=== PATIENT | female | born 1980 | race Hispanic/Latino ===

== ENCOUNTER 2019-01-16 15:24 | Emergency (ER) | payer SELFPAY ==
[2019-01-16] MEDS ORDERED: ATIVAN ONE ×4 (15:28→15:38)
[2019-01-16] MEDS ORDERED: ATIVAN IM ONE (15:30)
[2019-01-16] MEDS ORDERED: ATIVAN IV ONE ×3 (15:33→15:37)
[2019-01-16] MEDS ORDERED: KEPPRA 1,000 MG/NS 0.75% 100ML 1,000 MG/100 ML BAG IV ONE ×2 (15:36→18:26)
[2019-01-16] MEDS ORDERED: NACL 0.9% 1000 ML 1,000 ML ONE (15:38)
[2019-01-16] MEDS ORDERED: VASELINE LIP THERAPY TP PRN (15:49)
[2019-01-16] MEDS ORDERED: ARTIFICIAL TEARS OPHTH OINT OU PRN (15:49)
[2019-01-16] MEDS ORDERED: NACL 0.9% 1000 ML 1,000 ML IV ONE (15:50)
[2019-01-16] MEDS ORDERED: DIPRIVAN 10 MG/ML 1,000 MG/100 ML BOTTLE IV ONE (15:52)
[2019-01-16] MEDS ORDERED: LEVOPHED DRIP 4 MG/NS 250 ML 4 MG/250 ML BAG IV ONE (15:59)
[2019-01-16] MEDS ORDERED: DILANTIN IV ONE (16:00)
[2019-01-16] MEDS ORDERED: DIPRIVAN 10 MG/ML 1,000 MG/100 ML BOTTLE IV SCH (16:00)
[2019-01-16] MEDS ORDERED: NACL 0.9% IV ONE (16:00)
--- NOTE | 2019-01-16 16:20 | Emergency Department Report ---
HPI - General Chief Complaint: Neuro Symptoms/Deficit Time Seen by Provider: 01/16/19 15:39 - HPI HPI: 38-year-old female presents to the emergency department via EMS from home with a complaint of seizures. There was one witnessed seizure prior to EMS arrival, 3 seizures witnessed by EMS and thus far there has been about 12 seizures in the emergency department. 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 She has a history of chronic back pains, lupus, lupus nephritis, asthma, hypothyroidism, COPD, hypertension, previous DVT, sleep apnea. There are some records that were provided from one of the patient's hospital stays in [place] that shows her past medical history, medications. The patient is currently unresponsive and therefore a poor historian. ED Review of Systems ROS: Stated complaint: SEIZURE Other details as noted in HPI Comment: Unobtainable due to pts medical conditions Physical Exam - Physical Exam Vital Signs: Vital Signs 01/16/19 01/16/19 01/16/19 15:46 16:06 16:15 Pulse Rate 111 H 77 78 Respiratory 15 16 Rate Blood Pressure 53/29 Blood Pressure 114/69 53/29 [Left] O2 Sat by Pulse 98 100 98 Oximetry Physical Exam: GENERAL: Patient is ill-appearing. HENT: Normocephalic. Atraumatic. Patient has moist mucous membranes. EYES: Pupils equal reactive to light bilaterally. NECK: Supple. Trachea is midline. CHEST/LUNGS: Patient is having bradypnea and snoring respirations. HEART/CARDIOVASCULAR: Regular. There is mild tachycardia. There is no murmur. ABDOMEN: Abdomen is soft, nontender. Patient has normal bowel sounds. There is no abdominal distention. SKIN: Skin is warm and dry. NEURO: The patient is unresponsive. She is having progressively increasing tonoclonic seizures with a brief postictal period. MUSCULOSKELETAL: There is no obvious deformity. Radial pulse +2 over 4 bilaterally. ED Course Vital Signs 01/16/19 01/16/19 01/16/19 15:46 16:06 16:15 Pulse Rate 111 H 77 78 Respiratory 15 16 Rate Blood Pressure 53/29 Blood Pressure 114/69 53/29 [Left] O2 Sat by Pulse 98 100 98 Oximetry - Consultations Consultation #1: 01/16/19 19:32 I spoke with the neurologist valuation manager at [facility], Dr. Becerra, who has accepted the patient for transfer to [facility]. Dr. Becerra has asked for the patient to receive another gram of Keppra and for the diazepam drip to be placed at 10 mg per hour. - ABG Interpretation Ph: [phone] PCO2: 56 PO2: 87 Bicarbonate: 21 Interpretation: respiratory acidosis - Intubation Time Out Performed: Yes Sedative: Etomidate Mg Given: 20 Paralytic: Rocuronium Mg Given: 100 Laryngoscope: other (Glydescope) Size: 4 ET Tube Size: 7.5 Tube Secured Depth (cm): 23 Tube Secured Location: lips Tube Placement Confirmation: visualized tube passing t, equal breath sounds bilat, confirmation by capnometr Patient Tolerated Procedure: well Intubation Complications: none ED Medical Decision Making - Lab Data Result diagrams: 01/16/19 16:15 01/16/19 16:15 - EKG Data -: EKG Interpreted by Me EKG shows normal: sinus rhythm, axis, intervals (slight prolongation of QTC), QRS complexes, ST-T waves Rate: normal - EKG Data When compared to previous EKG there are: previous EKG unavailable Interpretation: normal EKG - Radiology Data Radiology results: report reviewed, image reviewed interpreted by me: Chest x-ray does not show any acute process. There are no pleural effusions, obvious pneumonia and there is no pneumothorax. Endotracheal tube appears in appropriate position just below the clavicular heads in mid trachea. PROCEDURE: CT HEAD/BRAIN WO CON TECHNIQUE: Computerized tomography of the head was performed without contrast material. CT DOSE LENGTH PRODUCT: 1047.6 mGycm HISTORY: Status Epilepticus COMPARISONS: None . FINDINGS: No CT evidence of intracranial mass, hemorrhage, acute territorial infarction, or hydrocephalus. Intracranial arteries are symmetric in density. Calvarium is intact. Paranasal sinuses and mastoids are aerated. IMPRESSION: No CT evidence of acute abnormality . This document is electronically signed by Amber Baumann MD., January 16 2019 06:28:06 PM ET Transcribed By: [facility] Dictated By: AMBER BAUMANN M.D. Electronically Authenticated By: AMBER BAUMANN M.D. Signed Date/Time: 01/16/19 8110 - Medical Decision Making This patient presents to the emergency department as a status epilepticus. She had one witnessed seizure at home, with EMS, and had close to 12 or more witnessed seizures while in the emergency department. In between the seizures, which were occurring more intensely and more rapidly with shorter postictal periods, the patient started having some hypoxia and tachypnea with snoring respirations. For this reason I made the decision to intubate this patient for protection of airway. She was intubated using the glydescope without any obvious complications from this procedure. The patient received intranasal Versed with EMS, and then had a total of about 8 mg of Ativan while trying to stop the recurrent seizures. These medications, along with the RSI medications given, started causing the patient have hypotension. She had IV fluid resuscitation going but it was not enough so a central line was placed and the patient was started on pressors. CT of the head did not show any bleed, shift, mass, ischemia, or any other acute process. Patient's labs have been mostly u nremarkable except for some renal insufficiency but the patient does have a history of lupus nephritis. Eventually the pressors were able to be stopped as her blood pressure improved and the patient is currently on diazepam drip for sedation, which should also help with her status epilepticus. Since the patient is currently intubated and receiving IV sedation, will be difficult to know if the patient is still having some recurrent seizure activity. I feel that the patient required continuous EEG and close neurological follow-up, neither of which we have in our facility. For this reason the patient will be transferred to [facility] and was accepted by the neurologist on-call. - Differential Diagnosis status epilepticus, withdrawal, substance abuse, dysrhythmia Critical Care Time: Yes Critical care time in (mins) excluding proc time.: 35 Critical care attestation.: If time is entered above; I have spent that time in minutes in the direct care of this critically ill patient, excluding procedure time. Critical care time was spent on this patient during her initial evaluation, multiple re- evaluations, ordering and interpretation of labs and imaging, discussion with t patricia primary neurologist, ordering and administration of multiple different medications and sedation. Critical Care Time: 35 minutes ED Disposition Clinical Impression: Status epilepticus, Renal insufficiency Hypothyroidism Qualifiers: Hypothyroidism type: unspecified Qualified Code(s): E03.9 - Hypothyroidism, unspecified Disposition: DC/TX-70 ANOTHER TYPE HLTHCARE Is pt being admited?: No Condition: Serious Referrals: AMARI VIRAMONTES MD [Primary Care Provider] - 3-5 Days Time of Disposition: 19:39
[2019-01-16 16:41] LABS: Basophils # (Auto) 0.1 K/mm3 (0.0-0.1); Basophils % (Auto) 0.9 % (0.0-1.8); Eosinophils # (Auto) 0.2 K/mm3 (0.0-0.4); Eosinophils % (Auto) 1.2 % (0.0-4.3); Hematocrit 35.9 % (30.3-42.9); Hemoglobin 11.9 gm/dl (10.1-14.3); Lymphocytes # (Auto) 1.7 K/mm3 (1.2-5.4); Lymphocytes % (Auto) 12.7 % (13.4-35.0); Mean Corpuscular HGB Conc 33 % (30-34); Mean Corpuscular Volume 97 fl (79-97); Monocytes # (Auto) 0.6 K/mm3 (0.0-0.8); Monocytes % (Auto) 4.8 % (0.0-7.3); Platelet Count 224 K/mm3 (140-440); Red Blood Count 3.69 M/mm3 (3.65-5.03); Red Cell Distribution Width 13.7 % (13.2-15.2)
--- NOTE | 2019-01-16 16:51 | XRay Report ---
PROCEDURE: XR CHEST 1V AP TECHNIQUE: Chest radiograph single view. HISTORY: ETT placement and central line COMPARISONS: None . FINDINGS: Heart: Normal. Mediastinum/Vessels: Normal. Lungs/Pleural space: Normal. Bony thorax: No acute osseous abnormality. Life support devices: Endotracheal tube with tip in the midtrachea. Right chest port with tip in the superior vena cava. Large bore right central venous catheter with tip in the superior vena cava. IMPRESSION: No acute cardiopulmonary abnormality. Endotracheal tube with tip in the midtrachea. Right central venous catheter with tip in the superior vena cava. This document is electronically signed by Shonda Abdi MD., January 16 2019 05:49:39 PM ET
[2019-01-16 17:00] LABS: Albumin 3.9 g/dL (3.9-5); BUN/Creatinine Ratio 9; Blood Urea Nitrogen 15 mg/dL (7-17); Calcium 8.6 mg/dL (8.4-10.2); Hemolysis Index 3
[2019-01-16 17:01] LABS: Alanine Aminotransferase < 5 units/L (7-56)
[2019-01-16] MEDS ORDERED: MIDAZOLAM 100 MG in NACL 0.9% 80 ML IV SCH (17:30)
--- NOTE | 2019-01-16 17:30 | Cat Scan Report ---
PROCEDURE: CT HEAD/BRAIN WO CON TECHNIQUE: Computerized tomography of the head was performed without contrast material. CT DOSE LENGTH PRODUCT: 1047.6 mGycm HISTORY: Status Epilepticus COMPARISONS: None . FINDINGS: No CT evidence of intracranial mass, hemorrhage, acute territorial infarction, or hydrocephalus. Intr acranial arteries are symmetric in density. Calvarium is intact. Paranasal sinuses and mastoids are a erated. IMPRESSION: No CT evidence of acute abnormality . This document is electronically signed by Amber Baumann MD., January 16 2019 06:28:06 PM ET
[2019-01-16] MEDS ORDERED: KETALAR ONE (18:05)
[2019-01-16] MEDS ORDERED: ZEMURON IV ONE (18:05)
[2019-01-16] MEDS ORDERED: AMIDATE IV ONE (18:05)
[2019-01-16 21:00] LABS: Bilirubin,Urine NEG (Negative); Blood,Urine SM (Negative); Color,Urine Yellow (Yellow); Granular Casts,Urine 1 /LPF; Hyaline Casts,Urine 10 /LPF; Mucus,Urine FEW /HPF; Protein,Urine <15 mg/dL mg/dL (Negative); Urobilinogen,Urine < 2.0 mg/dL (<2.0)
[2019-01-16 21:01] LABS: Amphetamine Screen,Urine PRESUMPTIVE NEGATIVE; Cannabinoid Screen,Urine PRESUMPTIVE NEGATIVE; Cocaine Screen,Urine PRESUMPTIVE NEGATIVE; Methadone Screen,Urine PRESUMPTIVE NEGATIVE; Opiate Screen,Urine PRESUMPTIVE NEGATIVE
[2019-01-16 21:17] LABS: Benzodiazepines Screen,Urine PRESUMPTIVE POSITIVE
[2019-01-17 00:27] VITALS: BP 149/101
[2019-01-17] MEDS ORDERED: AMIDATE IV ONE (15:24)
[2019-01-17] MEDS ORDERED: KETALAR IV ONE (15:25)
== END 2019-01-17 01:00 | disposition other institution (70) ==
LOC: ED 15:24
DX: G40.901 Epilepsy, unspecified, not intractable, with status epilepticus (principal); N28.9 Disorder of kidney and ureter, unspecified; E03.9 Hypothyroidism, unspecified; Z88.8 Allergy status to other drugs, medicaments and biological substances; Z88.1 Allergy status to other antibiotic agents; Z88.6 Allergy status to analgesic agent
CPT/HCPCS: 31500; 36415; 70450; 71045; 80053; 80307; 81001; 82550; 82803; 82962; 84443; 85025; 93005; 93010; 99291; G0480; J1953; J2060; J2250; J2704; J7030; 80320; 96365; 96375; J1165; J7050